=== PATIENT | male | born 1975 | race American Indian/Alaskan Native ===

== ENCOUNTER 2017-03-03 01:21 | Emergency (ER) | payer SELFPAY ==
[2017-03-03 23:59] LABS: HEMATOCRIT 44.2 % (35.0-51.0); MEAN CELL VOLUME 85.2 fL (80.0-94.0); MEAN CORPUSCULAR HEMOGLOBIN 28.4 pg (27.0-31.0); MEAN CORPUSCULAR HGB CONC 33.3 g/dL (33.0-37.0); MEAN PLATELET VOLUME 10.7 fL (7.2-11.7); RED CELL DISTRIBUTION WIDTH 14.7 % (11.5-14.5); WHITE BLOOD COUNT 4.9 K/uL (4.8-10.8)
[2017-03-04 00:14] LABS: ALB/GLOB RATIO 1.5 (1.0-2.1); ALCOHOL SERUM < 10 mg/dl (0-10); ALKALINE PHOSPHATASE 68 U/L (38-126); ALT/SGPT 29 U/L (21-72); AST/SGOT 42 U/L (17-59); BILIRUBIN,TOTAL 0.8 mg/dL (0.2-1.3); BLOOD UREA NITROGEN 18 mg/dL (9-20); CALCIUM 8.5 mg/dl (8.6-10.4); CARBON DIOXIDE 26 mmol/L (22-30); CHLORIDE 102 mmol/L (98-107); GFR AFRICAN-AMERICAN > 60; GLUCOSE,RANDOM 101 mg/dL (75-110); POTASSIUM 3.1 mmol/L (3.6-5.2); SODIUM 138 mmol/L (132-148); TOTAL PROTEIN 6.9 g/dL (6.3-8.3)
--- NOTE | 2017-03-04 10:14 | RAD ---
Chest x-ray two views History: Chest pain. Comparison: None available. Findings: Mild venous congestion. Mild thickening of the azygous fissure with some mild nodularity at the inferior aspect of the fissure. Bibasilar breast and nipple shadows. Small nodular density at the left lung base may represent a prominent nipple shadow. Tortuous aorta. Degenerative changes in the spine. Impression: Mild venous congestion. Additional findings as above.
--- NOTE | 2017-04-14 21:20 | CARD ---
APPROVED REPORT EKG Measurement Heart [id number] <Conclusion> Sinus bradycardia with sinus arrhythmia Left axis deviation ST & Marked T wave abnormality, consider inferolateral ischemia Prolonged QT Abnormal ECG
== END 2017-03-03 06:30 | disposition home or self-care (01) ==
LOC: C.ER 01:21
DX: R07.89 Other chest pain (principal)
CPT/HCPCS: 71020; 80053; 83690; 84484; 85027; 85378; 96374; 96375; 99281; G0480; J1885